=== PATIENT | male | born 1950 | race Caucasian/White ===

== ENCOUNTER 2017-02-05 09:15 | Outpatient (CLI) | payer OTHER ==
[~2017-02-05 09:15] MED LIST: ADDERALL20 MG PO; ALBUTEROL HFA60 DOSE IN; CITALOPRAM HYDR20 MG PO; CITALOPRAM HYDR40 MG PO; CLONAZEPAM0.5 MG PO; LITHIUM CARBON300 MG PO; NORCO1 TA1 PO; PRILOSEC20 MG PO
== END 2017-02-05 23:00 ==
LOC: RT SRH 09:15
PROC: 4A12X45 Monitoring of Cardiac Electrical Activity, Ambulatory, External Approach (ICD-10-PCS; principal; 2017-02-05)
DX: R00.2 Palpitations (principal); R07.9 Chest pain, unspecified